=== PATIENT | female | born 1985 | race Caucasian/White ===

== ENCOUNTER 2018-01-08 20:10 | Emergency (ER) | payer BC ==
[2018-01-08 22:00] VITALS: BP 109/74; PULSE 74; O2SAT 98
--- NOTE | 2018-01-08 22:11 | ERPHSYRPT ---
- History of Present Illness Time Seen by Provider: 01/08/18 20:40 Source: patient Exam Limitations: other Patient Subjective Stated Complaint: knee pain right side x 1-2 weeks Triage Nursing Assessment: c/o right knee pain x 1-2 weeks, possible known injury, states today has had increased "burning" in knee area with radiating pain to right posterior thigh and calf Physician History: PATIENT SLIPPED MISSED 2 STEPS AND TWISTED HER RIGHT KNEE 2 WEEKS AGO. HAS PERSISTENT PAIN UPON WEIGHT BEARING. LATER ADMITS TO PAIN IN HER RIGHT CALF AND [place]WE[place]. DENIES BRUISING OR DEFORMITY OR KNEE. Method of Injury: twisted Occurred: other (2 WEEKS AGO) Severity of Pain-Max: moderate Severity of Pain-Current: moderate Lower Extremities Pain: knee: right Modifying Factors: Improves With: movement, other (WEIGHT BEARING) Allergies/Adverse Reactions: No Known Drug Allergies Allergy (Unverified 10/19/12 18:10) Home Medications: No Home Meds [No Home Meds] 0 10/19/12 [History] Hx Tetanus, Diphtheria Vaccination/Date Given: Yes Hx Influenza Vaccination/Date Given: Yes Hx Pneumococcal Vaccination/Date Given: No Immunizations Up to Date: Yes - Review of Systems Constitutional: No Symptoms Musculoskeletal: Injury, Joint Swelling - Past Medical History Pertinent Past Medical History: No - Past Surgical History Past Surgical History: Yes Musculoskeletal: Orthopedic Surgery Female Surgical History: Breast Implant Other Surgical History: t&A - Social History Smoking Status: Never smoker Drug Use: none Patient Lives Alone: No - Female History Hx Last Menstrual Period: 12/31/2017 Hx Now: No - Nursing Vital Signs Nursing Vital Signs: Initial Vital Signs Temperature 97.8 F 01/08/18 20:21 Pulse Rate 101 H 01/08/18 20:21 Respiratory Rate 20 01/08/18 20:21 Blood Pressure 184/119 01/08/18 20:21 O2 Sat by Pulse Oximetry 99 01/08/18 20:21 Pain Scale Pain Intensity 8 - Physical Exam General Appearance: no apparent distress Legs Exam: right leg: pain (TENDERNESS RIGHT MID CALF) Knees Exam: right knee: pain, soft tissue tenderness ([employer] , THERE IS TENDERNESS OVER MEDIAL AND LATERAL FEMORAL CONDLYLE, NO JOINT LAXITY UPON VARUS/VALGUS STRESS, NEGATIVE DRAW SIGN, ) DTR - Lower Extremities Exam: knee (R): 2+, knee (L): 2+, ankle (R): 2+, ankle ( L): 2+ Neuro/Tendon Exam: normal sensation Mental Status Exam: alert, oriented x 3, cooperative Skin Exam: normal color SpO2 Interpretation: normal SpO2: 98 Oxygen Delivery: Room Air - Radiology Exams Right Knee X-ray Interpretation: Interpreted by me, No Fracture (NO DISLOCATION) - Radiology Ultrasound Exam Right Venous Lower Extremity Ultrasound: discussed w/radiologist (NO EVIDENCE OF DVT) Ordered Tests: Active Orders 24 hr Category Date Time Status Crutches STAT Care 01/08/18 22:06 Ordered KNEE (3 VIEWS) Stat Exams 01/08/18 20:52 Taken VENOUS UNILAT/LIMITED EXTREMIT [US] Stat Exams 01/08/18 21:54 Taken - Progress Progress Note: 01/08/18 22:11 ADMINISTERED CRUTCHES Counseled pt/family regarding: diagnosis, rad results - Departure Time of Disposition: 22:15 Departure Disposition: Home Clinical Impression: RIGHT KNEE STRAIN Condition: Stable Critical Care Time: No Referrals: ALAN JARRELL [Primary Care Provider] - Additional Instructions: CALL YOUR PRIMARY CARE PROVIDER FOR FOLLOWUP TOMORROW. AMBULATE USING CRUTCHES NONWEIGHT BEARING RIGHT LEG FOR 5-7 DAYS. MOTRIN OR TYLENOL NEEDED FOR PAIN DISCOMFORT.
--- NOTE | 2018-01-09 08:49 | XRAY ---
Indication: Calf pain. Two-dimensional sonogram and color Doppler imaging of the major venous vessels of the right leg was performed. Comparison: March 13, 2016. Again no thrombus seen in the examined deep venous vessels of the right leg including greater saphenous vein. Veins demonstrate normal compressibility. Venous waveforms are normal with and without augmentation. Impression: Right leg again negative for DVT. Comment: Preliminary report was given.
--- NOTE | 2018-01-09 08:51 | XRAY ---
Indication: Knee pain following injury 2 weeks ago. Comparison: None 3 views of the right knee demonstrates faint medial/lateral compartment degenerative chondrocalcinosis and minimal medial joint spurring. No other bony, articular, or soft tissue abnormalities.
== END 2018-01-08 22:54 | disposition home or self-care (01) ==
LOC: ED 20:10
DX: S86.811A Strain of other muscle(s) and tendon(s) at lower leg level, right leg, initial encounter (principal); M25.561 Pain in right knee
CPT/HCPCS: 73562; 93971; 99283; 99284

== ENCOUNTER 2022-11-06 02:45 | Emergency (ER) | payer BC ==
--- NOTE | 2022-11-06 03:25 | ERPHSYRPT ---
- History of Present Illness Time Seen by Provider: 11/06/22 03:05 Historian: patient Patient Subjective Stated Complaint: ABD PAIN, THIRD TIME THIS WEEK Triage Nursing Assessment: Pt ambulated into ER without diff, pt alert and oriented x4, pleasant and cooperative. Pt c/o RUQ abd pain which began around 2330, c/o pain radiating to upper back region. Abd lg, obese with active bs x4 quad, tender on palpation. LBM around 0100. Pt denies any nausea or indigestion vomited x1 tonight. Pt c/o this pain occuring 3 times this week but has gotten relief from it where she did not tonight. Physician History: This is a 37-year-old overweight white female who 3 times this week had similar symptoms of right upper quadrant abdominal pain with radiation to her right back area and associated nausea, bloating, belching and gassiness. Patient ate chili last night. The difference tonight and this morning was the pain lasted much longer than the other episodes. Patient has not seen her primary care doctor yet for the symptoms. She did not complain of chest pain. She has had no shortness of breath. She has had no vomiting or diarrhea. She has not had any fevers Timing/Duration: today Activities at Onset: sleep Quality: aching Abdominal Pain Onset Location: RUQ Pain Radiation: scapula (Right side back and scapula) Severity of Pain-Max: moderate Severity of Pain-Current: mild Associated Symptoms: back, nausea, No chest pain, No shortness of breath, No vomiting Previous symptoms: same symptoms as today, no recent treatment Allergies/Adverse Reactions: No Known Drug Allergies Allergy (Verified 11/06/22 02:58) Home Medications: Ergocalciferol (Vitamin D2) [Vitamin D2] 50,000 unit PO Q7D 11/06/22 [History] Levothyroxine Sodium 25 Mcg [Synthroid 25 Mcg] 25 mcg PO DAILY 11/06/22 [History] Tirzepatide [Mounjaro] 5 mg SQ WEEKLY 11/06/22 [History] Hx Tetanus, Diphtheria Vaccination/Date Given: No Hx Influenza Vaccination/Date Given: No Hx Pneumococcal Vaccination/Date Given: No Immunizations Up to Date: No Travel Risk - International Travel Have you traveled outside of the country in past 3 weeks: No - Coronavirus Screening Are you exhibiting any of the following symptoms?: No Close contact with a COVID-19 positive Pt in past 14-21 Days: No - Vaccine Status Have you recieved a Covid-19 vaccination: Yes Resident Services Supervisor: [employer] - Vaccination Dates Date of 2cond Vaccination (if applicable): . - Review of Systems Constitutional: No Symptoms Eyes: No Symptoms Ears, Nose, & Throat: No Symptoms Respiratory: No Symptoms Cardiac: No Symptoms Abdominal/Gastrointestinal: Abdominal Pain, Nausea, No Vomiting, No Diarrhea, No Constipation Genitourinary Symptoms: No Symptoms Musculoskeletal: No Symptoms Skin: No Symptoms Neurological: No Symptoms Psychological: No Symptoms Endocrine: No Symptoms Hematologic/Lymphatic: No Symptoms Immunological/Allergic: No Symptoms All Other Systems: Reviewed and Negative - Past Medical History Pertinent Past Medical History: No Neurological History: No Pertinent History Cardiac History: No Pertinent History Respiratory History: No Pertinent History Endocrine Medical History: No Pertinent History, Hypothyroidism Musculoskeletal History: Other GI Medical History: No Pertinent History History: No Pertinent History Psycho-Social History: No Pertinent History Female Reproductive Disorders: No Pertinent History - Past Surgical History Past Surgical History: Yes Musculoskeletal: Orthopedic Surgery Female Surgical History: Breast Implant Other Surgical History: t&A - Social History Smoking Status: Never smoker Exposure to second hand smoke: No Drug Use: none Patient Lives Alone: No - Female History Hx Last Menstrual Period: 11/01/22 Hx Now: No - Nursing Vital Signs Nursing Vital Signs: Initial Vital Signs Temperature 97.9 F 11/06/22 02:49 Pulse Rate 82 11/06/22 02:49 Respiratory Rate 20 11/06/22 02:49 Blood Pressure 188/107 11/06/22 02:49 O2 Sat by Pulse Oximetry 98 11/06/22 02:49 Pain Scale Pain Intensity 7 - Physical Exam General Appearance: no apparent distress, alert, anxiety, obese Eye Exam: PERRL/EOMI, eyes nml inspection Ears, Nose, Throat Exam: normal ENT inspection, moist mucous membranes Neck Exam: normal inspection, non-tender, supple, full range of motion Respiratory Exam: normal breath sounds, lungs clear, airway intact, No chest tenderness, No respiratory distress Cardiovascular Exam: regular rate/rhythm, normal heart sounds, normal peripheral pulses Gastrointestinal/Abdomen Exam: soft, normal bowel sounds, tenderness (Right upper quadrant), guarding (Mild right upper quadrant with palpation), No rebound Pelvic Exam: not done Rectal Exam: not done Back Exam: normal inspection, normal range of motion, No CVA tenderness, No vertebral tenderness Extremity Exam: normal inspection, normal range of motion, pelvis stable Neurologic Exam: alert, oriented x 3, cooperative, 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, normal mood/affect, nml cerebellar function, nml station & gait Skin Exam: normal color, warm, dry Lymphatic Exam: No adenopathy SpO2 Interpretation: normal SpO2: 98 O2 Delivery: Room Air - Course Nursing assessment & vital signs reviewed: Yes Ordered Tests: Active Orders 24 hr Category Date Time Status ABDOMEN AND PELVIS W/0 CONTRAS [CT] Stat Exams 11/06/22 03:47 Taken AMYLASE Stat Lab 11/06/22 04:13 Completed CBC W DIFF Stat Lab 11/06/22 04:13 Completed CMP Stat Lab 11/06/22 04:13 Completed CULTURE,URINE Stat Lab 11/06/22 03:48 Received HCG,QUALITATIVE URINE Stat Lab 11/06/22 04:13 Completed LIPASE Stat Lab 11/06/22 04:13 Completed UA W/RFX CULTURE Stat Lab 11/06/22 03:48 Completed Medication Summary Generic Name Dose Route Start Last Admin Trade Name Freq PRN Reason Stop Dose Admin Sodium Chloride 1,000 mls @ 999 mls/hr 11/06/22 04:09 11/06/22 04:15 Sodium Chloride 0.9% 1000 Ml IV 11/06/22 05:09 999 mls/hr .Q1H1M STA Administration Discontinued Medications Generic Name Dose Route Start Last Admin Trade Name Freq PRN Reason Stop Dose Admin Sodium Chloride Confirm 11/06/22 04:14 Sodium Chloride 0.9% 1000 Ml Administered 11/06/22 04:15 Dose 1,000 mls @ ud .ROUTE .STK-MED ONE Ondansetron HCl 4 mg 11/06/22 04:09 11/06/22 04:20 Ondansetron Hcl 4 Mg/2 Ml Vial IV 11/06/22 04:10 Not Given STAT ONE Ondansetron HCl Confirm 11/06/22 04:14 Ondansetron Hcl 4 Mg/2 Ml Vial Administered 11/06/22 04:15 Dose 4 mg .ROUTE .STK-MED ONE Lab/Rad Data: Laboratory Result Diagrams 11/06/22 04:13 11/06/22 04:13 Laboratory Results 11/06/22 11/06/22 11/06/22 Range/Units 04:13 04:13 04:13 WBC 8.7 (4.0-10.5) x10^3/uL RBC 4.24 (4.1-5.4) x10^6/uL Hgb 12.9 (12.0-16.0) g/dL Hct 41.2 (35-47) % MCV 97.2 (78-100) fL MCH 30.4 (26-32) pg MCHC 31.3 L (32-36) g/dL RDW 12.8 (11.5-14.0) % Plt Count 375 (150-450) x10^3/uL MPV 12.0 H (7.5-11.0) fL Gran % 52.5 (36.0-66.0) % Immature Gran % (Auto) 0.2 (0.00-0.4) % Nucleat RBC Rel Count 0.0 (0.00-0.1) % Eos # (Auto) 0.26 (0-0.5) x10^3/uL Immature Gran # (Auto) 0.02 (0.00-0.03) x10^3u/L Absolute Lymphs (auto) 3.19 (1.0-4.6) x10^3/uL Absolute Monos (auto) 0.57 (0.0-1.3) x10^3/uL Absolute Nucleated RBC 0.00 (0.00-0.01) x10^3u/L Lymphocytes % 36.9 (24.0-44.0) % Monocytes % 6.6 (0.0-12.0) % Eosinophils % 3.0 (0.00-5.0) % Basophils % 0.8 (0.0-0.4) % Absolute Granulocytes 4.54 (1.4-6.9) x10^3/uL Basophils # 0.07 (0-0.4) x10^3/uL Sodium 136 L (137-145) mmol/L Potassium 5.1 (3.5-5.1) mmol/L Chloride 105 (98-107) mmol/L Carbon Dioxide 25 (22-30) mmol/L Anion Gap 10.9 (5-15) MEQ/L BUN 13 (7-17) mg/dL Creatinine 0.77 (0.52-1.04) mg/dL Estimated GFR > 60.0 ML/MIN Glucose 103 (74-106) mg/dL Calcium 9.3 (8.4-10.2) mg/dL Total Bilirubin 0.70 (0.2-1.3) mg/dL AST 29 (14-36) U/L ALT 27 (0-35) U/L Alkaline Phosphatase 76 (38-126) U/L Serum Total Protein 7.8 (6.3-8.2) g/dL Albumin 4.5 (3.5-5.0) g/dL Amylase 51 (30-110) U/L Lipase 71 (23-300) U/L Urinalys Dipstick Clnc Urine Color (YELLOW) Urine Appearance (CLEAR) Urine pH (5-6) Ur Specific [place] (1.005-1.025) POC Urine Protein Conf (Negative) Urine Ketones (NEGATIVE) Urine Nitrite (NEGATIVE) Urine Bilirubin (NEGATIVE) Urine Urobilinogen (0-1) mg/dL Urine Leukocytes (NEGATIVE) Urine WBC (Auto) (0-5) /HPF Urine RBC (Auto) (0-2) /HPF U Epithel Cells (Auto) (FEW) /HPF Urine Bacteria (Auto) (NEGATIVE) /HPF Urine RBC (0-5) Yoel/ul Urine Mucus (Auto) (NEGATIVE) /HPF Ur Culture Indicated? Urine Glucose (NEGATIVE) mg/dL Urine HCG, Qual NEGATIVE (Negative) 11/06/22 Range/Units 03:48 WBC (4.0-10.5) x10^3/uL RBC (4.1-5.4) x10^6/uL Hgb (12.0-16.0) g/dL Hct (35-47) % MCV (78-100) fL MCH (26-32) pg MCHC (32-36) g/dL RDW (11.5-14.0) % Plt Count (150-450) x10^3/uL MPV (7.5-11.0) fL Gran % (36.0-66.0) % Immature Gran % (Auto) (0.00-0.4) % Nucleat RBC Rel Count (0.00-0.1) % Eos # (Auto) (0-0.5) x10^3/uL Immature Gran # (Auto) (0.00-0.03) x10^3u/L Absolute Lymphs (auto) (1.0-4.6) x10^3/uL Absolute Monos (auto) (0.0-1.3) x10^3/uL Absolute Nucleated RBC (0.00-0.01) x10^3u/L Lymphocytes % (24.0-44.0) % Monocytes % (0.0-12.0) % Eosinophils % (0.00-5.0) % Basophils % (0.0-0.4) % Absolute Granulocytes (1.4-6.9) x10^3/uL Basophils # (0-0.4) x10^3/uL Sodium (137-145) mmol/L Potassium (3.5-5.1) mmol/L Chloride (98-107) mmol/L Carbon Dioxide (22-30) mmol/L Anion Gap (5-15) MEQ/L BUN (7-17) mg/dL Creatinine (0.52-1.04) mg/dL Estimated GFR ML/MIN Glucose (74-106) mg/dL Calcium (8.4-10.2) mg/dL Total Bilirubin (0.2-1.3) mg/dL AST (14-36) U/L ALT (0-35) U/L Alkaline Phosphatase (38-126) U/L Serum Total Protein (6.3-8.2) g/dL Albumin (3.5-5.0) g/dL Amylase (30-110) U/L Lipase (23-300) U/L Urinalys Dipstick Clnc MAIN LAB Urine Color YELLOW (YELLOW) Urine Appearance SLIGHTLY CLOUDY A (CLEAR) Urine pH 5.5 (5-6) Ur Specific [place] >=1.030 A (1.005-1.025) POC Urine Protein Conf TRACE A (Negative) Urine Ketones NEGATIVE (NEGATIVE) Urine Nitrite NEGATIVE (NEGATIVE) Urine Bilirubin NEGATIVE (NEGATIVE) Urine Urobilinogen 0.2 (0-1) mg/dL Urine Leukocytes TRACE A (NEGATIVE) Urine WBC (Auto) 16-25 A (0-5) /HPF Urine RBC (Auto) 6-10 A (0-2) /HPF U Epithel Cells (Auto) RARE (FEW) /HPF Urine Bacteria (Auto) RARE (NEGATIVE) /HPF Urine RBC MODERATE A (0-5) Yoel/ul Urine Mucus (Auto) SLIGHT A (NEGATIVE) /HPF Ur Culture Indicated? YES Urine Glucose NEGATIVE (NEGATIVE) mg/dL Urine HCG, Qual (Negative) - Progress Progress: improved, pain not gone completely Progress Note: 11/06/22 05:10 CT scan of the abdomen and pelvis without contrast shows cholelithiasis with trace gallbladder wall thickening. Concerning for trace acute cholecystitis. 11/06/22 05:11 Patient states that she does not need any type of pain medicine at this time. 11/06/22 05:12 Medical decision making: This patient presents with right upper quadrant pain which radiates into her right back. Patient is afebrile. Patient's pain has nearly completely resolved here in the emergency department. Her white count is normal and she has a normal differential. Her liver enzymes and pancreas enzymes are within normal limits. She does have a urinary tract infection and we will treat this with Cipro antibiotic orally since it will concentrate in the gallbladder as well as treat her urinary tract infection. We will send prescription for Zofran, [place] 5/325, and Cipro antibiotic to her pharmacy. She is to follow-up with her primary care provider to schedule an outpatient gallbladder ultrasound and referral to a general surgeon. Counseled pt/family regarding: lab results, diagnosis, need for follow-up, rad results - Departure Departure Disposition: Home Clinical Impression: Cholelithiasis with cholecystitis, UTI (urinary tract infection) Condition: Stable Critical Care Time: No Referrals: JOSH FOX NP [Primary Care Provider] - Follow up/PCP as directed Additional Instructions: Plenty of fluids. Avoid fatty greasy spicy foods. Call your primary care prov ider today to make arrangements for outpatient gallbladder ultrasound and for referral to general surgeon as indicated. Take your antibiotics and other medication as prescribed. Prescriptions: Ondansetron ODT 4 MG [Zofran Odt 4 mg] 4 mg PO Q6H PRN PRN #10 tablet PRN Reason: Vomiting Hydrocodone/APAP 5/325 [[place] 5/325 mg] 1 each PO Q8H PRN PRN #6 tablet MDD 3 PRN Reason: Pain Ciprofloxacin [Cipro 500 MG] 500 mg PO BID #14 tablet
[2022-11-06 04:00] LABS: Appearance SLIGHTLY CLOUDY (CLEAR); Bilirubin NEGATIVE (NEGATIVE); Dipstick done @ ? MAIN LAB; Glucose NEGATIVE (NEGATIVE); Ketones NEGATIVE (NEGATIVE); Nitrite NEGATIVE (NEGATIVE); Ph 5.5 (5-6); Protein,Urine Dip TRACE (Negative); RBC MODERATE Ery/ul (0-5); Specific Gravity >=1.030 (1.005-1.025); Urobilinogen 0.2 mg/dL (0-1)
[2022-11-06 04:01] LABS: Bacteria RARE /HPF (NEGATIVE); Epithelial Cells RARE /HPF (FEW); Mucus SLIGHT /HPF (NEGATIVE)
[2022-11-06 04:02] LABS: Urine Cultured Indicated? YES
[2022-11-06] MEDS ORDERED: Sodium Chloride 0.9% 1000 ML 1,000 ML IV STA (04:09)
[2022-11-06] MEDS ORDERED: Sodium Chloride 0.9% 1000 ML 1,000 ML ONE (04:14)
[2022-11-06] MEDS ORDERED: Zofran 4 MG/2 ML VIAL ONE (04:14)
[2022-11-06 04:15] LABS: Absolute Neutrophil Ct (ANC) 4.54 x10^3/uL (1.4-6.9); Basophil (Absolute #) 0.07 x10^3/uL (0-0.4); Eosinophil (Absolute #) 0.26 x10^3/uL (0-0.5); Hematocrit 41.2 % (35-47); Hemoglobin 12.9 g/dL (12.0-16.0); Lymphocyte (Absolute #) 3.19 x10^3/uL (1.0-4.6); Lymphocytes % 36.9 % (24.0-44.0); Mean Cell Volume 97.2 fL (78-100); Mean Corpuscular Hemoglobin 30.4 pg (26-32); Mean Corpuscular Hgb Concent. 31.3 g/dL (32-36); Monocyte (Absolute #) 0.57 x10^3/uL (0.0-1.3); Monocytes % 6.6 % (0.0-12.0); Neutrophil % 52.5 % (36.0-66.0); Platelet Count 375 x10^3/uL (150-450); Red Blood Count 4.24 x10^6/uL (4.1-5.4); Red Cell Distribution Width 12.8 % (11.5-14.0); White Blood Count 8.7 x10^3/uL (4.0-10.5)
[2022-11-06] MEDS: Zofran 4 MG/2 ML VIAL IV ONE ×2 (04:15→04:20)
[2022-11-06 04:22] LABS: ALBUMIN 4.5 g/dL (3.5-5.0); ALKALINE PHOSPHATASE 76 U/L (38-126); AMYLASE 51 U/L (30-110); ANION GAP 10.9 MEQ/L (5-15); BLOOD UREA NITROGEN 13 mg/dL (7-17); CHLORIDE 105 mmol/L (98-107); Calcium 9.3 mg/dL (8.4-10.2); Carbon Dioxide 25 mmol/L (22-30); Creatinine 1 0.77 mg/dL (0.52-1.04); EST GLOMERULAR FILTRATION RATE > 60.0 ML/MIN; Glucose 103 mg/dL (74-106); LIPASE 71 U/L (23-300); Potassium 5.1 mmol/L (3.5-5.1); SGOT/AST 29 U/L (14-36); SGPT/ALT 27 U/L (0-35); SODIUM 136 mmol/L (137-145); Total Protein 7.8 g/dL (6.3-8.2)
[2022-11-06 05:12] VITALS: O2SAT 98
[2022-11-06 05:14] VITALS: BP 134/92; PULSE 67
[2022-11-06] MEDS ORDERED: Cipro 500 MG PO ONE (05:15)
[2022-11-06] MEDS ORDERED: Cipro 500 MG ONE (05:16)
--- NOTE | 2022-11-06 09:03 | XRAY ---
Indication: Abdomen pain. Multiple contiguous axial images obtained through the abdomen and pelvis without contrast. Comparison: June 14, 2019 Lung bases clear. Heart not enlarged. Noncontrasted stomach and bowel loops are nonobstructed with normal appendix. No free fluid/air. Gallbladder is now moderately distended with new 2.4 cm stone in the neck of the gallbladder. No free fluid/air. Remaining liver, pancreas, spleen, adrenal glands, kidneys, ureters, bladder, uterus, and aorta are unremarkable for noncontrast exam. Osseous structures intact. Impression: New distended gallbladder with 2.4 cm stone in the neck. Sonogram may yield further information. Comment: Preliminary interpretation made by [facility]. No critical discrepancy.
== END 2022-11-06 05:31 | disposition home or self-care (01) ==
LOC: ED 02:45
DX: K80.00 Calculus of gallbladder with acute cholecystitis without obstruction (principal); N39.0 Urinary tract infection, site not specified; R10.11 Right upper quadrant pain; R11.0 Nausea; R14.0 Abdominal distension (gaseous); Z79.891 Long term (current) use of opiate analgesic; Z79.899 Other long term (current) drug therapy
CPT/HCPCS: 36000; 36415; 74176; 80053; 81015; 81025; 82150; 83690; 85025; 87086; 96374; 96375; 99284; J2405; A9270-GY